=== PATIENT | male | born 1945 | race Caucasian/White ===

== ENCOUNTER 2017-04-07 11:23 | Emergency (ER) | payer OTHER ==
[2017-04-07] MEDS ORDERED: NS 1000 ML 1,000 ML IV ONE (11:27)
[2017-04-07] MEDS: ADRENALINE CHL INJ IVP PRN ×9 (11:28→11:52)
[2017-04-07 12:07] VITALS: BP 00/00; BMI 26.6
--- NOTE | 2017-04-07 12:08 | DR.CA ---
HPI - Time Seen Time seen: 11:27 - Reviewed Nurses Notes Review: Yes - Source History Provided: EMS - Mode of arrival Mode of Arrival: Stretcher - Context Onset: Witnessed Prehospital Care: Initial Rhythm: PEA Prehospital: Treatment: CPR, Intubation, Defribrillation, IV (VIA IO), Epinephrine Prehospital: Response to Treatment: No Response (EMS PLACE ET TUBE, INTRAOSSEOUS LINE WAS PLACE, DEFIBRILLATED ONCE AND GAVE EPI TIMES 2. NO RESPONSE.) - Associated Signs and Symptoms Associated Signs and Symptoms: None PMH - PMH Past Medical History: Anxiety, Arthritis, COPD, Kidney Stones Past Surgical History: Yes Surgical History: Tonsillectomy, Other - Family History Family Medical History: Diabetes Mellitus, NH, Coronary Artery Disease, Hypertension - Social History Do you use any recreational Drugs:: No PE - Vitals Vital Signs: Temp Pulse Resp BP BP BP Pulse Ox 04/07/17 11:27 0 F L 0 L 0 L 00/00 0 L 08/24/16 12:10 124/74 10/05/13 08:00 143/74 10/04/13 18:05 142/90 - Diagnosis Discharge Problem: Cardiopulmonary arrest - Discharge Plan Disposition: 20 Condition: Stable - Follow ups/Referrals Follow ups/Referrals: NFD,None [Primary Care Provider] - 3 days - Instructions Course - Treatment Treatment: SEE CODE NOTE. PATIENT RESUSCITATED IN ED FOR
== END 2017-04-07 13:40 | disposition expired ==
LOC: ER 11:23
PROC: 5A12012 Performance of Cardiac Output, Single, Manual (ICD-10-PCS; principal; 2017-04-07)
PROC: 0BH17EZ Insertion of Endotracheal Airway into Trachea, Via Natural or Artificial Opening (ICD-10-PCS; principal; 2017-04-07)
DX: I46.9 Cardiac arrest, cause unspecified (principal)
CPT/HCPCS: 31500; 92950; 93041; 96365; 96374; 96375; 99285; 99291; J0170